=== PATIENT | male | born 1980 | race Caucasian/White ===

== ENCOUNTER 2019-03-19 11:34 | Emergency (ER) | payer SELFPAY ==
[~2019-03-19] VITALS: Ht 172.7 cm; Wt 68.0 kg
--- OUTSIDE RECORDS SUMMARY | 2019-03-19 11:38 | XMS REPORT ---
Author Author [facility] Address Unknown Phone Unavailable Care Team Providers Care Stereotype Molder Name Role Phone NONE PP Unavailable Problems This patient has no known problems. Allergies, Adverse Reactions, Alerts This patient has no known allergies or adverse reactions. Medications This patient has no known medications. Encounters Start Date/Time End Date/Time Encounter Type Admission Type Attending Clinicians Care Facility Care Department Encounter ID 2016-12-30 10:50:00 2016-12-30 10:50:00 Emergency [facility] [id number] Results Test Description Test Time Test Comments Text Results Atomic Results Result Comments HEPATITIS C ANTIBODY SCREEN 2018-10-09 14:21:00 SCRN HCV (test code=SCRN HCV) REACTIVE NEGATIVE Hepatitis C Antibody test is for screening purposes only. All reactives will be confirmed by additional testing. HIV 1/2 [id number] 14:17:00* Test Item Value Reference Range Comments HIV 1/2 ANTIBODY (test code=AHIV) NONREACTIVE NONREACTIVE This test is used for SCREENING purposes only. All reactive results are prelimenary and confirmation results will follow. THYROID STIMULATION [id number] 13:51:00* Test Item Value Reference Range Comments TSH (test code=TSH) 1.17 UIU/ML 0.465-4.68 [id number] 13:50:00* Test Item Value Reference Range Comments SODIUM (test code=NA) 139 MMOL/L 137-145 K+ (test code=KSERUM) 4.6 MMOL/L 3.5-5.1 PLEASE NOTE NEW REFERENCE RANGE(S) IN EFFECT EFFECTIVE 05/28/2010 - NEW [employer] ([employer] 5600) CHLORIDE (test code=CL) 102 MMOL/L 98-107 CO2 (test code=CO2) 32 MMOL/L 22-30 BUN (test code=BUN) 18 MG/DL 9-20 CREA (test code=CREA) 0.7 MG/DL 0.8-1.5 GLUCOSE (test code=GLUCOSE) 83 MG/DL 70-99 Fasting glucose normal <100 MG/DL- [employer] recommendation CALCIUM (test code=CABLOOD) 9.7 MG/DL 8.4-10.2 TOTPROT (test code=TOTPROT) 7.9 G/DL 6.3-8.2 ALBUMIN (test code=ALBSERUM) 4.5 G/DL 3.5-5.0 BILITOT (test code=BILITOT) 0.5 MG/DL 0.2-1.3 AST (test code=AST) 27 U/L 15-46 PHOSALK (test code=PHOSALK) 59 U/L 38-126 ALT (test code=ALT) 55 U/L 13-69 GFR (test code=GFR) 135 mL/min/1.73m2 A GFR of >90 mL/min/1.73m2 is considered normal. LIPID [id number] 13:50:00* Test Item Value Reference Range Comments CHOLEST (test code=CHOLEST) 216 MG/DL 0-200 TRIGLYCE (test code=TRIGLYCE) 98 MG/DL 0-150 HDL (test code=HDL) 46 MG/DL 30-65 NEGATIVE RISK FACTOR FOR HEART DISEASE IF HDL >/=60 mg/dl MAJOR RISK FACTOR FOR HEART DISEASE IF HDL <40 mg/dL CALC LDL (test code=CALC LDL) 150 MG/DL <100 % HEMOGLOBIN A1C (GLYCATED)2018-10-09 13:28:00* Test Item Value Reference Range Comments HEMOGLOBIN A1C (test code=GLYCO-) 5.2 % 0-6 THERAPEUTIC TARGET FOR THE TREATMENT OF DIABETES MELLITUS PATIENTS IS < 7% HBA1C. [place]. DIABETES CARE 2002;25:S33-S49 [id number] 13:09:00* Test Item Value Reference Range Comments WBC (test code=WBC) 6.2 K/UL 3.5-10.9 RBC (test code=RBC) 4.77 M/UL 4.3-5.7 HGB (test code=HGB) 14.8 G/DL 13.0-17.9 HCT (test code=HCT) 43.2 % 38-52 MCV (test code=MCV) 90.6 FL 80-98 MCH (test code=MCH) 31.0 PG 28-32 MCHC (test code=MCHC) 34.3 G/DL 32.5-36.5 RDW (test code=RDW) 11.9 % 11.5-14.5 PLT (test code=PLT) 195 K/UL 150-450 MPV (test code=MPV) 10.4 FL 7.4-10.4 MANDIFF (test code=MANDIFF) NO SCAN (test code=SCAN) NO NEUT% (test code=NEUT%) 55.9 % 40-75 LYMPH% (test code=LYMPH%) 33.3 % 24-44 MONO% (test code=MONO%) 7.3 % 0-13 EOS% (test code=EOS%) 2.3 % 0-4 BASO % (test code=BASO%) 1.0 % 0-2 IG (test code=IG) 0 % 0-1 IG% (test code=IG%) 0.2 % 0-1 IG%=Metamyelocytes, Myelocytes, and Promyelocytes. (Immature neutrophils not including "bands".) > 3% IG indicates risk of sepsis NRBC% (test code=NRBC%) 0 /100 WBC ABS NEUT (test code=NEUT) 3.5 K/UL 1.2-7.2 [id number] 12:56:00* Test Item Value Reference Range Comments GLUCOSE (test code=URGLU) NEGATIVE MG/DL NEG-100 BILIRUBN (test code=URBILI) NEGATIVE NEGATIVE KETONE (test code=URKET) NEGATIVE MG/DL NEGATIVE BLOOD (test code=URBLD) NEGATIVE UR PH (test code=URPH) 5.5 5.0-7.5 PROTEIN (test code=URPRO) NEGATIVE MG/DL NEGATIVE NITRITES (test code=URNIT) NEGATIVE NEGATIVE UROBILINGEN (test code=URURO) 0.2 EU/DL 0.2-1.0 LEUKOCYT (test code=URLEU) NEGATIVE NEGATIVE UA COLOR (test code=UA COLOR) YELLOW YELLOW CLARITY (test code=CLARITY) CLEAR CLEAR SP GRAV (test code=URSPGRAV) 1.024 1.000-1.025 UAMICRO (test code=UAMICRO) NO HEPATITIS C ANTIBODY [id number] 13:55:00* Test Item Value Reference Range Comments SCRN HCV (test code=SCRN HCV) REACTIVE NEGATIVE Hepatitis C Antibody test is for screening purposes only. All reactives will be confirmed by additional testing. ER SCREEN FOR HIV 13:55:00* Test Item Value Reference Range Comments HIV 1/2 AB (test code=SCRN HIV) NONREACTIVE NONREACTIVE This test is used for SCREENING purposes only. All reactive results are prelimenary and confirmation results will follow. URINE DRUG [id number] 16:17:00* Test Item Value Reference Range Comments AMPHET (test code=BAMP) NEGATIVE NEGATIVE This is an unconfirmed screening. Result are to be used for medical purposes (treatment) only. Not intended for non-medical purposes. Cut-off concentration for a positive result for each drug: Amphetamine - 1,000 ng/ml Barbiturate - 200 ng/ml Benzodiazepine - 200 ng/ml Cannabinoids - 50 ng/ml Cocaine - 300 ng/ml Opiates - 300 ng/ml PCP - 25 ng/ml BARBITURATES (test code=BBAR) NEGATIVE NEGATIVE BENZO (test code=BBENZ) NEGATIVE NEGATIVE CANNABS (test code=BCANN) NEGATIVE NEGATIVE COCAINE (test code=BCOC) NEGATIVE NEGATIVE OPIATES (test code=BOPI) NEGATIVE NEGATIVE PCP (test code=BMTPCP) NEGATIVE NEGATIVE [id number] 15:28:00* Test Item Value Reference Range Comments GLUCOSE (test code=URGLU) NEGATIVE MG/DL NEG-100 BILIRUBN (test code=URBILI) NEGATIVE NEGATIVE KETONE (test code=URKET) NEGATIVE MG/DL NEGATIVE BLOOD (test code=URBLD) NEGATIVE UR PH (test code=URPH) 7.5 5.0-7.5 PROTEIN (test code=URPRO) NEGATIVE MG/DL NEGATIVE NITRITES (test code=URNIT) NEGATIVE NEGATIVE UROBILINGEN (test code=URURO) 0.2 EU/DL 0.2-1.0 LEUKOCYT (test code=URLEU) NEGATIVE NEGATIVE UA COLOR (test code=UA COLOR) YELLOW YELLOW CLARITY (test code=CLARITY) CLEAR CLEAR SP GRAV (test code=URSPGRAV) 1.011 1.000-1.025 UAMICRO (test code=UAMICRO) NO BLOOD ALCOHOL (ETOH)2018-09-06 15:25:00* Test Item Value Reference Range Comments ALCOHOL BLOOD LEVEL (test code=ALC BLD) <10 MG/DL 0-10 Results are to be used for medical purposes (treatment) only. Not intended for non medical purposes. CREATINE [id number] 15:25:00* Test Item Value Reference Range Comments CK (test code=CK) 95 U/L 55-170 LIVER [id number] 15:25:00* Test Item Value Reference Range Comments TOTPROT (test code=TOTPROT) 8.2 G/DL 6.3-8.2 ALBUMIN (test code=ALBSERUM) 4.7 G/DL 3.5-5.0 BILITOT (test code=BILITOT) 0.3 MG/DL 0.2-1.3 BILIDIR (test code=BILIDIR) 0.2 MG/DL 0.0-0.4 AST (test code=AST) 28 U/L 15-46 PHOSALK (test code=PHOSALK) 75 U/L 38-126 ALT (test code=ALT) 33 U/L 13-69 [id number] 14:51:00* Test Item Value Reference Range Comments WBC (test code=WBC) 8.1 K/UL 3.5-10.9 RBC (test code=RBC) 4.60 M/UL 4.3-5.7 HGB (test code=HGB) 14.2 G/DL 13.0-17.9 HCT (test code=HCT) 42.4 % 38-52 MCV (test code=MCV) 92.2 FL 80-98 MCH (test code=MCH) 30.9 PG 28-32 MCHC (test code=MCHC) 33.5 G/DL 32.5-36.5 RDW (test code=RDW) 12.4 % 11.5-14.5 PLT (test code=PLT) 224 K/UL 150-450 MPV (test code=MPV) 10.4 FL 7.4-10.4 MANDIFF (test code=MANDIFF) NO SCAN (test code=SCAN) NO NEUT% (test code=NEUT%) 67.9 % 40-75 LYMPH% (test code=LYMPH%) 22.4 % 24-44 MONO% (test code=MONO%) 6.3 % 0-13 EOS% (test code=EOS%) 2.3 % 0-4 BASO % (test code=BASO%) 0.9 % 0-2 IG (test code=IG) 0 % 0-1 IG% (test code=IG%) 0.2 % 0-1 IG%=Metamyelocytes, Myelocytes, and Promyelocytes. (Immature neutrophils not including "bands".) > 3% IG indicates risk of sepsis NRBC% (test code=NRBC%) 0 /100 WBC ABS NEUT (test code=NEUT) 5.5 K/UL 1.2-7.2 ISTAT [id number] 14:15:00* Test Item Value Reference Range Comments ISTATNA (test code=ISTATNA) 142 MMOL/L 137-145 ISTATK (test code=ISTATK) 4.3 MMOL/L 3.6-5.0 ISTATCL (test code=ISTATCL) 100 MMOL/L 98-107 ISTIONCA (test code=ISTIONCA) 1.20 MMOL/L 1.12-1.32 ISTCO2 (test code=ISTCO2) 28 MMOL/L 22-30 ISTATGLU (test code=ISTATGLU) 116 MG/DL 65-110 ISTATBUN (test code=ISTATBUN) 16.0 MG/DL 7.0-20.0 ISTCREA (test code=ISTCREA) 0.8 MG/DL 0.7-1.5 ISTATHCT (test code=ISTATHCT) 43 %PCV 37.0-52.0 ISTATHGB (test code=ISTATHGB) 14.6 G/DL 12.0-18.0 ISTANGAP (test code=ISTANGAP) 18 MMOL/L
[2019-03-19] MEDS ORDERED: PENCILLIN V PO250 MG PO (14:24)
[2019-03-19] MEDS ORDERED: IBUPROFEN400 MG PO (14:25)
[2019-03-19] MEDS ORDERED: TYLENOL WITH C1 EACH PO (14:26)
[2019-03-19] MEDS ORDERED: CLINDAMYCIN PHOS 600 MG/ 4 ML VIAL ONE (14:27)
[2019-03-19] MEDS ORDERED: CLINDAMYCIN PHOS 600 MG/ 4 ML VIAL IM ONE (14:30)
[2019-03-19 14:35] VITALS: BP 139/82
== END 2019-03-19 14:36 | disposition home or self-care (01) ==
LOC: FSED 11:34
DX: K08.89 Other specified disorders of teeth and supporting structures (principal); K02.9 Dental caries, unspecified; K04.7 Periapical abscess without sinus; I10 Essential (primary) hypertension
CPT/HCPCS: 99282